=== PATIENT | female | born 1955 | race Caucasian/White ===

== ENCOUNTER 2018-06-16 11:55 | Day surgery (SDC) | payer OTHER ==
[~2018-06-16] VITALS: Ht 160 cm; Wt 53.1 kg
[2018-06-16] MEDS ORDERED: methylPREDNISolone ACETATE 80 MG/ML IM ONE (11:56)
[2018-06-16] MEDS ORDERED: BUPIVACAINE /PF 0.25% 30 ML VIAL INJ ONE (11:56)
[2018-06-16] MEDS ORDERED: LIDOCAINE 2%, 20 ML MDV INJ ONE (11:56)
[2018-06-16] MEDS ORDERED: IOHEXOL 300 mgI/mL, 50 mL INFUS..BTL IV ONE (11:56)
[2018-06-16] MEDS ORDERED: DIPHENHYDRAMINE INJ 50 MG/ML VIAL IVP ONE (13:37)
[2018-06-16] MEDS ORDERED: MIDAZOLAM HCL 5 MG/5 ML VIAL ONE (16:47)
[2018-06-16 17:43] VITALS: BP_SYST 163
[2018-06-16] MEDS ORDERED: DIPHENHYDRAMINE INJ 50 MG/ML VIAL ONE (18:31)
== END 2018-06-16 14:30 | disposition still patient (30) ==
LOC: SDS 11:55
PROVIDERS: ATTEND Internal Medicine
DX: M51.16 Intervertebral disc disorders with radiculopathy, lumbar region (principal); Z79.899 Other long term (current) drug therapy
CPT/HCPCS: 62323; J1040; J1200; J2001; J2250; J3490; J7120; Q9967

== ENCOUNTER 2018-08-18 09:39 | Day surgery (SDC) | payer OTHER ==
[~2018-08-18] VITALS: Ht 157.5 cm; Wt 54.4 kg
[2018-08-18] MEDS ORDERED: LIDOCAINE 2%, 20 ML MDV INJ ONE (09:40)
[2018-08-18] MEDS ORDERED: IOHEXOL 300 mgI/mL, 50 mL INFUS..BTL IV ONE (09:40)
[2018-08-18] MEDS ORDERED: MIDAZOLAM HCL 5 MG/5 ML VIAL IVP ONE (09:40)
[2018-08-18] MEDS ORDERED: DIPHENHYDRAMINE INJ 50 MG/ML VIAL IVP ONE ×2 (09:40→10:25)
[2018-08-18] MEDS ORDERED: BUPIVACAINE /PF 0.25% 30 ML VIAL INJ ONE (09:40)
[2018-08-18] MEDS ORDERED: MIDAZOLAM HCL 5 MG/5 ML VIAL ONE (10:04)
[2018-08-18 13:36] VITALS: BP_SYST 168
== END 2018-08-18 11:40 | disposition home or self-care (01) ==
LOC: SDS 09:39 → SMU 09:55 → SDS 11:40
PROVIDERS: ATTEND Internal Medicine
DX: M51.16 Intervertebral disc disorders with radiculopathy, lumbar region (principal); M54.5 Low back pain
CPT/HCPCS: 62323; J1200; J2001; J2250; J3490; Q9967

== ENCOUNTER 2020-03-28 09:51 | Day surgery (SDC) | payer OTHER, SELFPAY ==
[~2020-03-28] VITALS: Ht 157.5 cm; Wt 52.2 kg
[2020-03-28] MEDS ORDERED: LIDOCAINE 2%, 20 ML MDV INJ ONE (09:52)
[2020-03-28] MEDS ORDERED: NS 50 ML BAG IV ONE (09:52)
[2020-03-28] MEDS ORDERED: methylPREDNISolone ACETATE 80 MG/ML IM ONE (09:52)
[2020-03-28] MEDS ORDERED: IOPAMIDOL 50 ML VIAL IV ONE (09:52)
[2020-03-28] MEDS ORDERED: BUPIVACAINE /PF 0.25% 30 ML VIAL INJ ONE (09:52)
[2020-03-28] MEDS ORDERED: DIPHENHYDRAMINE INJ 50 MG/ML VIAL ONE (11:41)
[2020-03-28] MEDS: MIDAZOLAM HCL 5 MG/5 ML VIAL ONE ×2 (11:47→11:49)
[2020-03-28 12:00] VITALS: BP_SYST 148
== END 2020-03-28 12:50 | disposition home or self-care (01) ==
LOC: SDS 09:51 → SMU 09:52 → SDS 12:50
PROVIDERS: ATTEND Internal Medicine
DX: M54.16 Radiculopathy, lumbar region (principal); G89.4 Chronic pain syndrome; Z11.59 Encounter for screening for other viral diseases
CPT/HCPCS: 62323; J1040; J1200; J2001; J2250; J3490; J7120; Q9967; U0003; 76000

== ENCOUNTER 2020-10-24 07:35 | Day surgery (SDC) | payer OTHER, SELFPAY ==
[~2020-10-24] VITALS: Ht 160 cm; Wt 54.4 kg
[2020-10-24] MEDS ORDERED: MORPHINE 2 MG/ML INJ. SYRINGE ONE (10:10)
[2020-10-24] MEDS ORDERED: MORPHINE 2 MG/ML INJ. SYRINGE IVP ONE (11:15)
[2020-10-24 12:09] VITALS: BP_SYST 170
[2020-10-24] MEDS ORDERED: DIPHENHYDRAMINE INJ 50 MG/ML VIAL ONE (14:26)
[2020-10-24] MEDS ORDERED: MIDAZOLAM HCL 5 MG/5 ML VIAL ONE (14:26)
== END 2020-10-24 11:50 | disposition home or self-care (01) ==
LOC: SDS 07:35 → SMU 07:36 → SDS 11:50
PROVIDERS: ATTEND Internal Medicine
DX: M51.16 Intervertebral disc disorders with radiculopathy, lumbar region (principal); G89.4 Chronic pain syndrome; M79.10 Myalgia, unspecified site; Z79.899 Other long term (current) drug therapy; Z20.828 Contact with and (suspected) exposure to other viral communicable diseases
CPT/HCPCS: 62323; J1200; J2250; J2270; U0003; 76000